=== PATIENT | female | born 1985 | race Caucasian/White ===

== ENCOUNTER → 2021-05-07 11:48 | Outpatient (CLI) | payer OTHER, MEDICAID, SELFPAY ==
[2021-05-07 14:54] LABS: COVID19 -Nasal RAPID Negative (Negative)
== END ==
PROVIDERS: Visit Provider Physician Assistant
DX: R05 Cough (principal); R09.81 Nasal congestion; R51.9 Headache, unspecified; Z20.822 Contact with and (suspected) exposure to COVID-19
CPT/HCPCS: 87635